=== PATIENT | female | born 1995 | race Caucasian/White ===

== ENCOUNTER → 2017-11-04 | Emergency (ER) | payer OTHER ==
[~2017-11-04] VITALS: Ht 162.6 cm; Wt 47.6 kg
[~2017-11-04] MED LIST: INTESTINEX680 MG PO; ZANTAC150 MG PO
== END | disposition home or self-care (01) ==
LOC: ER 12:17
DX: N93.8 Other specified abnormal uterine and vaginal bleeding (principal); N83.292 Other ovarian cyst, left side; N83.291 Other ovarian cyst, right side

== ENCOUNTER 2017-11-11 22:56 | Emergency (ER) | payer OTHER ==
[~2017-11-11] VITALS: Ht 157.5 cm; Wt 48.5 kg
== END 2017-11-12 22:56 | disposition home or self-care (01) ==
LOC: ER 22:56
DX: K52.89 Other specified noninfective gastroenteritis and colitis (principal)

== ENCOUNTER 2023-07-19 09:27 | Emergency (ER) | payer OTHER ==
[~2023-07-19] VITALS: Ht 157.5 cm; Wt 68.0 kg
[2023-07-19 10:46] LABS: HEMATOCRIT 40.5 % (36.0-45.00); HEMOGLOBIN 13.7 g/dL (12.0-15.00); MEAN CELL VOLUME 81.8 fL (80.00-100.00); MEAN CORPUSCULAR HEMOGLOBIN 27.6 pg (27.00-32.0); MEAN CORPUSCULAR HGB CONC 33.8 g/dl (32.0-36.0); PLATELET COUNT 284 K/uL (150-450); RED BLOOD COUNT 4.95 M/uL (4.00-6.00); RED CELL DISTRIBUTION WIDTH 12.8 % (11.5-14.5)
[2023-07-19 11:18] LABS: CALCIUM 9.8 mg/dL (8.5-10.1); CREATININE SERUM 0.51 mg/dL (0.55-1.02); GFR 146.93; POTASSIUM 4.05 mEq/L (3.5-5.1)
[2023-07-19 11:45] LABS: PH,URINE 6.5 (5.0-8.0); URINE APPEARANCE Cloudy; URINE BILIRRUBIN Negative (NEGATIVE); URINE BLOOD Negative; URINE COLOR Yellow; URINE EPITHELIAL CELLS 168.8 uL (0.0-38.8); URINE GLUCOSE Negative (NEGATIVE); URINE LEUKOCYTE Small; URINE NITRATE Negative; URINE PROTEIN Negative (NEGATIVE); URINE RBC 13.3 uL (0.0-20.8); URINE WBC 179.7 uL (0.0-23.2)
== END 2023-07-19 15:28 | disposition home or self-care (01) ==
LOC: ER 09:27
PROVIDERS: Emergency Medicine
DX: K52.89 Other specified noninfective gastroenteritis and colitis (principal)

== ENCOUNTER 2025-01-22 18:42 | Outpatient (CLI) | payer OTHER ==
[2025-01-22] MEDS ORDERED: ONDANSETRON HCL 2 MG/ML VIAL IV SCH (19:00)
[2025-01-22] MEDS ORDERED: RINGERS SOLUTION,LACTATED 1,000 ML IV SCH (19:00)
[2025-01-22 19:15] VITALS: BP 108/69
[2025-01-22 19:23] VITALS: BP 108/69
[2025-01-22] MEDS ORDERED: ONDANSETRON HCL 2 MG/ML VIAL ONE (19:33)
[2025-01-22 19:41] LABS: BASO % 0.3 % (0.1-1.2); EOS # 0.14 (0.04-0.54); EOS % 1.4 % (0.7-7.0); LYMPH # 1.48 (1.18-3.74); MEAN CORPUSCULAR HEMOGLOBIN 27.4 pg (25.6-32.2); MONO # 0.74 (0.24-0.82); MONO % 7.5 % (4.7-12.5); NEUT # 7.27 (1.56-6.13); NEUT % 73.5 % (34.0-71.1); PLATELET COUNT 226 K/uL (163-369); RED BLOOD COUNT 4.02 M/uL (3.93-5.22); RED CELL DISTRIBUTION WIDTH 13.3 % (11.6-14.4)
[2025-01-22 19:44] LABS: URINE APPEARANCE Clear; URINE BILIRRUBIN Small (NEGATIVE); URINE BLOOD Negative; URINE COLOR Dark Yellow; URINE GLUCOSE Negative (NEGATIVE); URINE LEUKOCYTE Trace; URINE NITRATE Negative; URINE PROTEIN 30 (NEGATIVE)
[2025-01-22 19:45] LABS: URINE BACTERIA 632.7 uL (0.0-1933); URINE EPITHELIAL CELLS 62.8 uL (0.0-38.8); URINE RBC 24.4 uL (0.0-20.8); URINE WBC 42.8 uL (0.0-23.2)
[2025-01-22 20:06] LABS: BILIRUBIN TOTAL 0.79 mg/dL (0.3-1.2); CALCIUM 8.5 mg/dL (8.5-10.1); CREATININE SERUM 0.48 mg/dL (0.55-1.02); GFR 155.14; GLOBULINA 3.6 G/DL (2.4-3.5); POTASSIUM 3.79 mEq/L (3.5-5.1); TOTAL PROTEIN 6.6 gm/dL (6.4-8.2); URINE CAST 0.58 uL (0.0-1.40); URINE KETONE 80 (NEGATIVE); URINE MUCUS MODERATE
[2025-01-22] MEDS ORDERED: FAMOTIDINE/PF 20 MG/2 ML VIAL IV SCH (21:00)
[2025-01-22] MEDS ORDERED: CEFAZOLIN SODIUM 1,000 MG VIAL ONE (21:18)
[2025-01-22] MEDS ORDERED: CEFAZOLIN SODIUM 1,000 MG VIAL IV SCH (21:26)
[2025-01-22 23:30] VITALS: BP 101/53
[2025-01-23 03:05] VITALS: BP 90/52; BP 96/55
[2025-01-23] MEDS ORDERED: ONDANSETRON HCL 2 MG/ML VIAL IV SCH ×2 (05:00→13:00)
[2025-01-23 06:26] VITALS: BP 91/51; O2SAT 99
[2025-01-23 11:53] VITALS: BP 116/73; O2SAT 98
[2025-01-23 15:16] VITALS: BP 85/60
[2025-01-23 17:49] VITALS: BP 85/60
== END 2025-01-23 18:02 | disposition home or self-care (01) ==
LOC: OBS/DEL 18:42
PROVIDERS: ATTEND Specialist
DX: O26.892 Other specified pregnancy related conditions, second trimester (principal); R11.10 Vomiting, unspecified; R19.7 Diarrhea, unspecified; Z3A.22 22 weeks gestation of pregnancy

== ENCOUNTER 2025-05-11 09:30 | Inpatient (IN) | payer OTHER ==
[~2025-05-11] VITALS: Ht 160 cm; Wt 3.2 kg
[2025-05-11 09:18] VITALS: BP 113/71
[2025-05-11] MEDS ORDERED: CEFAZOLIN SODIUM 1,000 MG VIAL IV SCH (10:00)
[2025-05-11] MEDS ORDERED: IRON236 MG PO (10:06)
[2025-05-11] MEDS ORDERED: PRENATAL TABLE1 EAC4 PO (10:06)
[2025-05-11 10:30] LABS: BASO % 0.4 % (0.1-1.2); EOS # 0.40 (0.04-0.54); EOS % 3.0 % (0.7-7.0); LYMPH # 2.15 (1.18-3.74); LYMPH % 16.1 % (19.3-53.1); MEAN PLATELET VOLUME 11.20 fl (9.4-12.4); MONO # 1.05 (0.24-0.82); MONO % 7.8 % (4.7-12.5); NEUT # 9.47 (1.56-6.13); NEUT % 70.7 % (34.0-71.1); RED CELL DISTRIBUTION WIDTH 13.6 % (11.6-14.4)
[2025-05-11] MEDS ORDERED: DEXTROSE 5 % IN WATER 100 ML IV ONE (10:30)
[2025-05-11] MEDS ORDERED: RINGERS SOLUTION,LACTATED 1,000 ML IV SCH (10:30)
[2025-05-11 10:31] LABS: URINE APPEARANCE Clear; URINE BILIRRUBIN Negative (NEGATIVE); URINE BLOOD Negative; URINE COLOR Yellow; URINE GLUCOSE Negative (NEGATIVE); URINE KETONE 15 (NEGATIVE); URINE LEUKOCYTE Negative; URINE NITRATE Negative; URINE PROTEIN Trace (NEGATIVE); URINE UROBILINOGEN 0.2 E.U./dl
[2025-05-11 10:36] LABS: URINE BACTERIA 217.2 uL (0.0-1933); URINE EPITHELIAL CELLS 22.4 uL (0.0-38.8); URINE RBC 3.2 uL (0.0-20.8); URINE WBC 14.1 uL (0.0-23.2)
[2025-05-11 11:04] LABS: URINE CAST 0.00 uL (0.0-1.40)
[2025-05-11 11:16] LABS: INR 0.98
[2025-05-11 11:38] VITALS: BP 135/76; O2SAT 97
[2025-05-11 11:54] LABS: ALT/SGPT 17.0 U/L (12-78); AST/SGOT 14.0 U/L (15-37); BILIRUBIN TOTAL 0.58 mg/dL (0.3-1.2); BUN CREA RATIO 9.0 (7.0-25.0); CREATININE SERUM 0.43 mg/dL (0.55-1.02); GFR 176.14; GLOBULINA 3.3 G/DL (2.4-3.5); GLUCOSE FASTING 83.0 mg/dL (65-100); OSMOLALITY SERUM 274.0 MOSM/KG (275-295)
[2025-05-11 15:07] VITALS: BP 96/56; O2SAT 100
[2025-05-11] MEDS ORDERED: OXYTOCIN 10 UNITS/ML VIAL ONE (15:43)
[2025-05-11] MEDS ORDERED: ERYTHROMYCIN BASE OPHT 1GM EACH TUBE OP ONE (15:44)
[2025-05-11] MEDS ORDERED: DEXTROSE 5 % IN WATER 250 ML IV ONE (15:45)
[2025-05-11] MEDS ORDERED: KETOROLAC TROMETHAMINE 60 MG VIAL IM ONE (20:15)
[2025-05-11] MEDS ORDERED: MORPHINE SULFATE 4 MG/ML CARTRIDGE IV SCH (20:15)
[2025-05-11 22:36] VITALS: BP 113/61
[2025-05-12 00:46] VITALS: BP 111/62
[2025-05-12 04:30] VITALS: BP 116/62
[2025-05-12] MEDS ORDERED: ONDANSETRON 4 MG TAB.RAPDIS PO SCH (05:00)
[2025-05-12 06:13] LABS: BASO % 0.2 % (0.1-1.2); EOS # 0.13 (0.04-0.54); EOS % 0.9 % (0.7-7.0); LYMPH # 1.70 (1.18-3.74); LYMPH % 11.5 % (19.3-53.1); MEAN PLATELET VOLUME 11.30 fl (9.4-12.4); MONO # 1.11 (0.24-0.82); MONO % 7.5 % (4.7-12.5); NEUT # 11.60 (1.56-6.13); NEUT % 78.7 % (34.0-71.1); RED CELL DISTRIBUTION WIDTH 13.6 % (11.6-14.4)
[2025-05-12] MEDS ORDERED: ACETAMINOPHEN 325 MG TABLET PO SCH (07:00)
[2025-05-12 08:00] VITALS: BP 109/61
[2025-05-12] MEDS ORDERED: OxyCODONE HCL 5 MG TABLET (ROXICODONE) PO SCH ×2 (09:00→13:00)
[2025-05-12] MEDS ORDERED: SIMETHICONE 125 MG CAPSULE PO SCH (09:00)
[2025-05-12] MEDS ORDERED: DOCUSATE SODIUM 100MG CAP PO SCH (09:00)
[2025-05-12] MEDS ORDERED: KETOROLAC TROMETHAMINE 60 MG VIAL IM NR (11:30)
[2025-05-12 16:42] VITALS: BP 125/77
[2025-05-13 00:15] VITALS: BP 101/61
[2025-05-13 08:00] VITALS: BP 112/65
[2025-05-13 20:18] VITALS: BP 117/69
[2025-05-13] MEDS ORDERED: ACETAMINOPHEN 325 MG TABLET PO SCH (21:14)
[2025-05-13] MEDS ORDERED: OxyCODONE HCL 5 MG TABLET (ROXICODONE) PO SCH (21:15)
[2025-05-14] VITALS: BP 108/67
[2025-05-14] MEDS ORDERED: SIMETHICONE80 MG PO (07:31)
[2025-05-14] MEDS ORDERED: IBU800 MG PO (07:31)
[2025-05-14] MEDS ORDERED: COLACE100 MG PO (07:31)
[2025-05-14 09:18] VITALS: BP 110/69
== END 2025-05-14 12:00 | disposition home or self-care (01) | DRG 784 ==
LOC: OB/GYN 09:30 → LDR 09:30 → OB/GYN 14:32
PROVIDERS: ADMIT Specialist; ATTEND Specialist
PROC: 0UB70ZZ Excision of Bilateral Fallopian Tubes, Open Approach (ICD-10-PCS; 2025-05-11)
PROC: 4A1HXCZ Monitoring of Products of Conception, Cardiac Rate, External Approach (ICD-10-PCS; 2025-05-11)
PROC: 10D00Z1 Extraction of Products of Conception, Low, Open Approach (ICD-10-PCS; principal; 2025-05-11 20:00)
DX: O34.211 Maternal care for low transverse scar from previous cesarean delivery (principal); O41.03X0 Oligohydramnios, third trimester, not applicable or unspecified; Z30.2 Encounter for sterilization; Z37.0 Single live birth; Z3A.37 37 weeks gestation of pregnancy